=== PATIENT | male | born 1970 | race Caucasian/White ===

== ENCOUNTER 2021-03-24 01:24 | Day surgery (SDC) | payer OTHER, SELFPAY ==
[2021-03-08 12:54] VITALS: BMI 33.9
[2021-03-24 10:58] VITALS: BP 136/89; PULSE 92; RESP 20; TEMP 36.4; O2SAT 99; BMI 34.0
--- NOTE | 2021-03-24 11:04 | P.PNAN_ITS ---
Anes - Initial Pre Proc Eval Procedure: Operation Date: 03/24/21 12:30 Proposed Procedures p Screening Colonoscopy - Deion Barrett MD Date/Time: 03/24/21 11:04 Surgeon: Deion Barrett MD Pre Op Diagnosis: neoplasm screening Patient Data Age: 50 Gender: M Height: 1.68 m Weight: 95.5 kg Last Vital Signs Temp 36.4 C L 03/24/21 10:58 Pulse 92 03/24/21 10:58 Resp 20 03/24/21 10:58 BP 136/89 03/24/21 10:58 Pulse Ox 99 03/24/21 10:58 Allergies Allergy/AdvReac Type Severity Reaction Status Date / Time No Known Allergies Allergy Mild Verified 03/24/21 10:57 Home Medications Medication Instructions Recorded Confirmed Type gemfibrozil 600 mg tablet 600 mg PO BID #180 tablet 12/22/20 03/08/21 Rx levothyroxine 125 mcg capsule 125 mcg PO DAILY #90 cap 12/22/20 03/08/21 Rx lisinopril 20 1 tablet PO DAILY #90 tablet 12/22/20 03/08/21 Rx mg-hydrochlorothiazide 25 mg tablet metformin 1,000 mg tablet 1,000 mg PO BID #180 tablet 12/22/20 03/08/21 Rx rosuvastatin 20 mg tablet 20 mg PO DAILY #90 tablet 12/22/20 03/08/21 Rx glipizide [Glucotrol] 10 mg PO BID 03/08/21 03/08/21 History pioglitazone [Actos] 15 mg PO DAILY 03/08/21 03/08/21 History Patient hx anesthesia problems: none Family hx anesthesia problems: none Results Review: All pre-operative results and documents have been reviewed as part of the pre-operative evaluation. [facility] Family History Family History Mother Family history of thyroid disease Hypertension Patient's mother is in good health Family history of chronic obstructive pulmonary disease Father Family history of thyroid disease Diabetes mellitus Hypertension Cerebrovascular accident Sibling Family history of thyroid disease Hypertension Patient's brother is in good health Grandparent Diabetes mellitus Cerebrovascular accident, Onset Age: 93 Social History Social History Smoking status: Never smoker Alcohol intake: current Drinks per week: 1 Alcohol use details: eleuterio Substance use: never Substance use type: does not use Living arrangements: with family Spiritual care concerns: No Anes - Eval Final PreProcedure Day of Procedure 03/24/21 11:04 Patient weight: obese Heart: regular rate and rhythm Lungs: clear to auscultation Airway: Mallampati scale class II Neurological: alert and oriented Last oral intake: >/= 8 hours ASA classification: III Emergent: no Anesthetic plan: proceed Anesthesia type and monitoring: general GIVS and standard monitoring Results Review: All pre-operative results and documents have been reviewed as part of the pre-operative evaluation. Informed Consent: The patient's anesthetic plan and its attendant risks and benefits were discussed with the patient/family/POA. Questions were solicited and answers provided to the satisfaction of the patient/family/POA.
[2021-03-24] MEDS: LACTATED RINGERS 1,000 ML 150 ML IV CONT (11:05)
[2021-03-24 11:09] LABS: Glucose Point of Care 177 mg/dl (65-105)
--- NOTE | 2021-03-24 11:11 | WPDGICN ---
Assessment and Plan Assessment and plan (1) Encounter for screening colonoscopy: Code(s): Z12.11 - Encounter for screening for malignant neoplasm of colon Status: Acute Assessment and Plan: Patient presents for screening colonoscopy. He appears to be at average risk for colon polyps. Further recommendations will be given after endoscopy. GI Consult Note Consult date/time: 03/24/21 11:11 HPI: Kayode Pendleton is a 50 year old male Presents for screening colonoscopy. Patient reports that his current weight appetite and bowel movements are normal. He denies abdominal pain. He has had no bleeding. Family history is noncontributory. Presents today for neoplasia screening. Review of Systems Review of Systems: All systems reviewed & are unremarkable except as noted in HPI and below PMFSH Family History Family History Mother Family history of thyroid disease Hypertension Patient's mother is in good health Family history of chronic obstructive pulmonary disease Father Family history of thyroid disease Diabetes mellitus Hypertension Cerebrovascular accident Sibling Family history of thyroid disease Hypertension Patient's brother is in good health Grandparent Diabetes mellitus Cerebrovascular accident, Onset Age: 93 Social History Social History Smoking status: Never smoker Alcohol intake: current Drinks per week: 1 Alcohol use details: eleuterio Substance use: never Substance use type: does not use Living arrangements: with family Spiritual care concerns: No Meds Home Medications and Allergies Home Medications Medication Instructions Recorded Confirmed Type gemfibrozil 600 mg tablet 600 mg PO BID #180 tablet 12/22/20 03/08/21 Rx levothyroxine 125 mcg capsule 125 mcg PO DAILY #90 cap 12/22/20 03/08/21 Rx lisinopril 20 1 tablet PO DAILY #90 tablet 12/22/20 03/08/21 Rx mg-hydrochlorothiazide 25 mg tablet metformin 1,000 mg tablet 1,000 mg PO BID #180 tablet 12/22/20 03/08/21 Rx rosuvastatin 20 mg tablet 20 mg PO DAILY #90 tablet 12/22/20 03/08/21 Rx glipizide [Glucotrol] 10 mg PO BID 03/08/21 03/08/21 History pioglitazone [Actos] 15 mg PO DAILY 03/08/21 03/08/21 History Allergies Allergy/AdvReac Type Severity Reaction Status Date / Time No Known Allergies Allergy Mild Verified 03/24/21 10:57 Vital Signs Vital Signs - 24 hr 03/24/21 10:58 Temperature 97.5 F L Pulse Rate 92 Respiratory Rate 20 Blood Pressure 136/89 Pulse Oximetry 99 Exam Narrative: Physical exam reveals patient to be alert. Vital signs stable. HEENT exam is unremarkable. Patient is anicteric. Lungs are clear to auscultation and percussion. Heart is without murmur or extra sounds. Abdominal exam bowel sounds are present soft nontender with no hepatosplenomegaly. Digital external rectal exam is normal.
[2021-03-24 11:26] VITALS: BP 100/64; PULSE 84; RESP 18; O2SAT 96
[2021-03-24 11:36] VITALS: BP 105/62; PULSE 74; RESP 18; O2SAT 97
[2021-03-24 11:46] VITALS: BP 108/66; PULSE 65; RESP 20; O2SAT 98
== END 2021-03-24 12:01 | disposition home or self-care (01) ==
PROVIDERS: PCP Internal Medicine; Visit Provider Internal Medicine Gastroenterology
PROC: 0DJD8ZZ Inspection of Lower Intestinal Tract, Via Natural or Artificial Opening Endoscopic (ICD-10-PCS; CPT 45378; principal; 2021-03-24 12:30)
DX: Z12.11 Encounter for screening for malignant neoplasm of colon (principal); D12.2 Benign neoplasm of ascending colon; K64.8 Other hemorrhoids; Z79.84 Long term (current) use of oral hypoglycemic drugs; E66.9 Obesity, unspecified; Z68.34 Body mass index [BMI] 34.0-34.9, adult
CPT/HCPCS: 45385; 82948; 88305; J2704; J7120

== ENCOUNTER 2021-08-31 15:30 | Outpatient (RCR) | payer OTHER, SELFPAY | END 2021-11-27 09:52 | disposition home or self-care (01) | LOC: ANHDMC 15:30 | PROVIDERS: PCP Internal Medicine; Referring Provider Internal Medicine; Visit Provider Internal Medicine | DX: E11.9 Type 2 diabetes mellitus without complications (principal); Z71.89 Other specified counseling | CPT/HCPCS: G0108 ==

== ENCOUNTER 2022-05-15 14:37 | Outpatient (RCR) | payer OTHER, SELFPAY ==
[2022-05-15 14:47] VITALS: BMI 32.8
[2022-05-15 15:10] VITALS: BMI 32.8
== END 2022-07-30 10:36 | disposition home or self-care (01) ==
LOC: ANHDMC 14:37
PROVIDERS: PCP Family Medicine; Visit Provider Family Medicine
DX: E11.9 Type 2 diabetes mellitus without complications (principal); Z71.3 Dietary counseling and surveillance
CPT/HCPCS: 97802; 99199

== ENCOUNTER 2023-03-29 11:52 | Outpatient (CLI) | payer OTHER, SELFPAY ==
[2023-03-29 20:25] LABS: Thyroid Stimulating Hormone Reflex 0.033 uIU/mL (0.465-4.68)
[2023-03-29 21:11] LABS: Free T4 Free Thyroxine Reflex 1.52 ng/dL (0.78-2.19)
[2023-03-29 21:57] LABS: Total Triiodothyronine (T3) 1.39 NG/ML (0.97-1.69)
== END 2023-03-29 11:53 | disposition home or self-care (01) ==
LOC: ANHGOSHLAB 11:53
PROVIDERS: PCP Family Medicine; Visit Provider Family Medicine
DX: Z13.29 Encounter for screening for other suspected endocrine disorder (principal)
CPT/HCPCS: 36415; 84439; 84443; 84480

== ENCOUNTER 2023-07-26 15:47 | Outpatient (CLI) | payer OTHER, SELFPAY ==
[2023-07-26 19:42] LABS: Free T4 Free Thyroxine Reflex 1.09 ng/dL (0.78-2.19)
[2023-07-26 20:25] LABS: Total Triiodothyronine (T3) 1.28 NG/ML (0.97-1.69)
== END 2023-07-26 15:48 | disposition home or self-care (01) ==
LOC: ANHGOSHLAB 15:48
PROVIDERS: PCP Family Medicine; Visit Provider Family Medicine
DX: Z13.29 Encounter for screening for other suspected endocrine disorder (principal)
CPT/HCPCS: 36415; 84439; 84443; 84480

== ENCOUNTER 2024-02-13 10:35 | Outpatient (CLI) | payer OTHER, SELFPAY ==
[2024-02-13 19:58] LABS: Free T4 Free Thyroxine 1.38 ng/mL (0.78-2.19)
[2024-02-13 20:00] LABS: Alanine Aminotransferase 29 U/L (6-50); Albumin Level 4.5 g/dL (3.5-5.1); Alkaline Phosphatase 61 U/L (38-126); Anion Gap 7 mmol/L (4-12); Aspartate Amino Transferase 36 U/L (17-59); Bilirubin,Total 0.6 mg/dL (0.2-1.3); Blood Urea Nitrogen 20 mg/dL (9-20); Calcium 9.7 mg/dL (8.4-10.2); Carbon Dioxide 32 mmol/L (22-30); Chloride 99 mmol/L (98-107); Cholesterol 132 mg/dL (0-200); Estimated Glomerular Filt Rate > 60; Glucose 94 mg/dL (65-110); HDL Direct 45 mg/dL; Potassium 4.6 mmol/L (3.4-5.0); Sodium 138 mmol/L (137-145); Triglycerides 186 mg/dL (<150)
[2024-02-13 20:05] LABS: Creatinine Urine 227.6 mg/dL
[2024-02-13 20:07] LABS: Microalbumin Urine Random 77.4 mg/L (0-16.7)
[2024-02-13 20:11] LABS: LDL Cholesterol Direct 50 mg/dL
[2024-02-13 20:28] LABS: Prostate Specific Antigen 0.7 ng/mL (< OR = 4.0); Thyroid Stimulating Hormone 0.799 uIU/mL (0.465-4.680)
[2024-02-13 21:38] LABS: Hemoglobin A1C 7.3 % (<5.7)
== END 2024-02-13 10:36 | disposition home or self-care (01) ==
LOC: ANHGOSHLAB 10:36
PROVIDERS: PCP Family Medicine; Visit Provider Family Medicine
DX: Z13.220 Encounter for screening for lipoid disorders (principal); E11.9 Type 2 diabetes mellitus without complications; Z12.5 Encounter for screening for malignant neoplasm of prostate; Z13.228 Encounter for screening for other metabolic disorders; E03.9 Hypothyroidism, unspecified
CPT/HCPCS: 36415; 80053; 80061; 82043; 83036; 84153; 84439; 84443; G0103

== ENCOUNTER 2024-05-29 08:58 | Outpatient (CLI) | payer OTHER, SELFPAY ==
[2024-05-29 14:20] LABS: Hemoglobin A1C 7.3 % (<5.7)
[2024-05-29 14:36] LABS: Anion Gap 10 mmol/L (4-12); Blood Urea Nitrogen 17 mg/dL (9-20); Calcium 9.4 mg/dL (8.4-10.2); Carbon Dioxide 32 mmol/L (22-30); Chloride 100 mmol/L (98-107); Estimated Glomerular Filt Rate > 60; Glucose 122 mg/dL (65-110); Potassium 4.3 mmol/L (3.4-5.0); Sodium 142 mmol/L (137-145)
[2024-05-30 08:09] LABS: Triiodothyronine T3 Free 3.6 pg/mL (2.3-4.2)
== END 2024-05-29 08:59 | disposition home or self-care (01) ==
LOC: ANHGOSHLAB 08:59
PROVIDERS: PCP Nurse Practitioner; Visit Provider Nurse Practitioner
DX: E03.9 Hypothyroidism, unspecified (principal); I10 Essential (primary) hypertension; E11.9 Type 2 diabetes mellitus without complications
CPT/HCPCS: 36415; 80048; 83036; 84439; 84443; 84481

== ENCOUNTER 2024-11-10 07:54 | Outpatient (CLI) | payer OTHER, SELFPAY ==
[2024-11-10 19:02] LABS: Hematocrit 46.5 % (42.0-52.0); Hemoglobin 14.7 g/dL (14.0-18.0); Immature Granulocyte Percent A 0.7 % (0-0.5); Lymphocytes Absolute Auto 2.02 K/mm3 (0.9-3.2); Mean Corpuscular HGB Conc 31.6 g/dl (32-36); Mean Corpuscular Hemoglobin 29.1 pg (26-34); Mean Corpuscular Volume 92.1 fl (80-100); Nucleated Red Blood Cells Absolute Auto 0.000 K/mm3 (0.0-0.012); Nucleated Red Blood Cells Perc 0.0 % (0.0-0.2); Platelet Count Result 364 k/mm3 (150-375); Red Blood Count 5.05 M/mm3 (4.6-6.20); White Blood Count 12.0 K/mm3 (4.5-10.0)
[2024-11-10 19:26] LABS: Alanine Aminotransferase 30 U/L (6-50); Albumin Level 4.2 g/dL (3.5-5.1); Alkaline Phosphatase 67 U/L (38-126); Anion Gap 6 mmol/L (4-12); Aspartate Amino Transferase 71 U/L (17-59); Bilirubin,Total 0.3 mg/dL (0.2-1.3); Blood Urea Nitrogen 17 mg/dL (9-20); Calcium 9.5 mg/dL (8.4-10.2); Carbon Dioxide 28 mmol/L (22-30); Chloride 101 mmol/L (98-107); Estimated Glomerular Filt Rate > 60; Glucose 152 mg/dL (65-110); Potassium 4.3 mmol/L (3.4-5.0); Sodium 135 mmol/L (137-145); Total Protein 6.8 g/dL (6.3-8.2)
[2024-11-10 19:42] LABS: Free T3 3.53 pg/mL (2.71-6.16); Free T4 Free Thyroxine 1.13 ng/dL (0.78-2.19)
[2024-11-10 19:53] LABS: MALB Creatinine Ratio 4.6 mg/g (0-30)
[2024-11-10 20:01] LABS: Thyroid Stimulating Hormone 2.040 uIU/mL (0.465-4.680)
[2024-11-10 20:21] LABS: Vitamin B12 426.0 pg/mL (239-931)
[2024-11-10 20:47] LABS: Hemoglobin A1C 7.3 % (<5.7)
== END 2024-11-10 07:55 | disposition home or self-care (01) ==
LOC: ANHGOSHLAB 07:55
PROVIDERS: PCP Nurse Practitioner; Visit Provider Nurse Practitioner
DX: E11.9 Type 2 diabetes mellitus without complications (principal); E03.9 Hypothyroidism, unspecified; I10 Essential (primary) hypertension
CPT/HCPCS: 36415; 80053; 82043; 82607; 83036; 84439; 84443; 84481; 85025

== ENCOUNTER 2024-12-10 15:43 | Outpatient (CLI) | payer OTHER, SELFPAY ==
[2024-12-10 16:23] LABS: Hematocrit 44.0 % (42.0-52.0); Hemoglobin 14.2 g/dL (14.0-18.0); Immature Granulocyte Percent A 0.4 % (0-0.5); Lymphocytes Absolute Auto 2.72 K/mm3 (0.9-3.2); Mean Corpuscular HGB Conc 32.3 g/dl (32-36); Mean Corpuscular Hemoglobin 28.7 pg (26-34); Mean Corpuscular Volume 89.1 fl (80-100); Nucleated Red Blood Cells Absolute Auto 0.000 K/mm3 (0.0-0.012); Nucleated Red Blood Cells Perc 0.0 % (0.0-0.2); Platelet Count Result 348 k/mm3 (150-375); Red Blood Count 4.94 M/mm3 (4.6-6.20); White Blood Count 10.8 K/mm3 (4.5-10.0)
[2024-12-10 16:39] LABS: Alanine Aminotransferase 31 U/L (6-50); Albumin Level 4.4 g/dL (3.5-5.1); Alkaline Phosphatase 50 U/L (38-126); Aspartate Amino Transferase 35 U/L (17-59); Bilirubin,Total 0.4 mg/dL (0.2-1.3); Total Protein 7.4 g/dL (6.3-8.2)
== END 2024-12-10 15:44 | disposition home or self-care (01) ==
PROVIDERS: PCP Nurse Practitioner; Visit Provider Nurse Practitioner
DX: D72.829 Elevated white blood cell count, unspecified (principal); R74.8 Abnormal levels of other serum enzymes
CPT/HCPCS: 36415; 80076; 85025

== ENCOUNTER 2025-03-11 08:03 | Outpatient (CLI) | payer OTHER, SELFPAY ==
[2025-03-11 12:46] LABS: Hematocrit 48.5 % (42.0-52.0); Hemoglobin 15.6 g/dL (14.0-18.0); Immature Granulocyte Percent A 0.6 % (0-0.5); Lymphocytes Absolute Auto 2.20 K/mm3 (0.9-3.2); Mean Corpuscular HGB Conc 32.2 g/dl (32-36); Mean Corpuscular Hemoglobin 29.0 pg (26-34); Mean Corpuscular Volume 90.1 fl (80-100); Nucleated Red Blood Cells Absolute Auto 0.000 K/mm3 (0.0-0.012); Nucleated Red Blood Cells Perc 0.0 % (0.0-0.2); Platelet Count Result 381 k/mm3 (150-375); Red Blood Count 5.38 M/mm3 (4.6-6.20); White Blood Count 10.5 K/mm3 (4.5-10.0)
[2025-03-11 13:00] LABS: Alanine Aminotransferase 25 U/L (6-50); Albumin Level 4.5 g/dL (3.5-5.1); Alkaline Phosphatase 66 U/L (38-126); Anion Gap 8 mmol/L (4-12); Aspartate Amino Transferase 28 U/L (17-59); Bilirubin,Total 0.5 mg/dL (0.2-1.3); Blood Urea Nitrogen 17 mg/dL (9-20); Calcium 9.4 mg/dL (8.4-10.2); Carbon Dioxide 30 mmol/L (22-30); Chloride 101 mmol/L (98-107); Cholesterol 138 mg/dL (0-200); Estimated Glomerular Filt Rate > 60; Glucose 127 mg/dL (65-110); HDL Direct 44 mg/dL; Potassium 4.2 mmol/L (3.4-5.0); Sodium 139 mmol/L (137-145); Total Protein 7.3 g/dL (6.3-8.2); Triglycerides 196 mg/dL (<150)
[2025-03-11 13:36] LABS: Hemoglobin A1C 7.0 % (<5.7)
== END 2025-03-11 08:04 | disposition home or self-care (01) ==
LOC: ANHGOSHLAB 08:03
PROVIDERS: PCP Nurse Practitioner; Visit Provider Nurse Practitioner
DX: E11.9 Type 2 diabetes mellitus without complications (principal); R74.8 Abnormal levels of other serum enzymes
CPT/HCPCS: 36415; 80053; 80061; 83036; 85025